=== PATIENT | male | born 1955 | race Caucasian/White ===

== ENCOUNTER 2017-10-16 09:35 | Day surgery (SDC) | payer OTHER ==
[2017-10-12 16:21] VITALS: BMI 22.2
[2017-10-16] MEDS ORDERED: PROPOFOL 20 ML ONE (11:53)
[2017-10-16 16:31] VITALS: TEMP 97.9
[2017-10-16 16:35] VITALS: BP 98/59; PULSE 88
--- NOTE | 2017-10-18 15:21 | PATH ---
Surgical Pathology Report Patient Name: AJAY BROWN [facility]. Rec. #: [id number] /Age/Gender: 1955 (Age: 62) / M Account: [id number] Location: [facility]-ENDOS[facility] Taken: 10/16/2017 Received: 10/16/2017 Reported: 10/18/2017 Physicians: Kumar Price M.D. Specimen(s) Received BX RIGHT COLON Clinical History Preoperative diagnosis: Family history of colon cancer Postoperative diagnosis: Polyp Final Diagnosis COLON, RIGHT, BIOPSY: TUBULAR ADENOMA. Electronically Signed Deedee Farrar M.D. Gross Description Received in formalin, labeled "right colon" is a prasad, irregular portion of soft tissue measuring 0.1 cm. in greatest dimension. The specimen is submitted in toto in one cassette. 10/17/201710/17/2017
== END 2017-10-16 13:10 | disposition home or self-care (01) ==
LOC: FASU-ENDO 09:35
PROVIDERS: ATTEND Internal Medicine Gastroenterology
PROC: 0DBK8ZX Excision of Ascending Colon, Via Natural or Artificial Opening Endoscopic, Diagnostic (ICD-10-PCS; principal; 2017-10-16 11:57)
DX: Z86.010 Personal history of colon polyps (principal); Z80.0 Family history of malignant neoplasm of digestive organs; K57.30 Diverticulosis of large intestine without perforation or abscess without bleeding; D12.2 Benign neoplasm of ascending colon
CPT/HCPCS: 88305-TC

== ENCOUNTER 2023-04-19 07:27 | Day surgery (SDC) | payer OTHER ==
[2023-04-19] MEDS ORDERED: LIDOCAINE HCL/PF 2% SDV 5ML VIAL ONE (07:53)
[2023-04-19] MEDS ORDERED: PROPOFOL 120 ML ONE (07:53)
[2023-04-19 08:04] VITALS: RESP 18; BMI 22.8
[2023-04-19 09:40] VITALS: TEMP 97.6
[2023-04-19 10:23] VITALS: BP 108/62; PULSE 70
== END 2023-04-19 10:23 | disposition home or self-care (01) ==
LOC: FASU-ENDO 07:27
PROVIDERS: ATTEND Internal Medicine Gastroenterology
PROC: 0DBK8ZX Excision of Ascending Colon, Via Natural or Artificial Opening Endoscopic, Diagnostic (ICD-10-PCS; principal; 2023-04-19 09:11)
DX: Z12.11 Encounter for screening for malignant neoplasm of colon (principal); D12.2 Benign neoplasm of ascending colon; K63.3 Ulcer of intestine; K57.30 Diverticulosis of large intestine without perforation or abscess without bleeding; Z86.010 Personal history of colon polyps; Z80.0 Family history of malignant neoplasm of digestive organs; Z83.71 Family history of colonic polyps
CPT/HCPCS: 88305-TC